=== PATIENT | male | born 2005 | race Caucasian/White ===

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

== ENCOUNTER 2023-03-26 11:08 | Emergency (ER) | payer OTHER ==
[~2023-03-26] VITALS: Ht 177.8 cm; Wt 82.3 kg
[~2023-03-26 11:08] MED LIST: CEPH500C PO
[2023-03-26] MEDS ORDERED: ACET-683 PO (11:18)
[2023-03-26] MEDS ORDERED: IBUPROFEN 600MG TAB PO ONE (13:35)
[2023-03-26 15:17] LABS: MONO SCRN POSITIVE (NEGATIVE)
[2023-03-26 15:59] VITALS: BP 130/59
== END 2023-03-26 16:04 | disposition home or self-care (01) ==
LOC: M ED 11:08
DX: B27.90 Infectious mononucleosis, unspecified without complication (principal); Z91.018 Allergy to other foods; Z79.1 Long term (current) use of non-steroidal anti-inflammatories (NSAID)

== ENCOUNTER 2024-05-09 09:38 | Emergency (ER) | payer OTHER ==
[~2024-05-09] VITALS: Ht 177.8 cm; Wt 94.3 kg
[~2024-05-09 09:38] MED LIST changes: +ACET-683 PO
[2024-05-09 09:40] VITALS: BP 130/60; TEMP 97.4; O2SAT 98
[2024-05-09] MEDS ORDERED: DOXY100T (09:54)
== END 2024-05-09 12:14 | disposition home or self-care (01) ==
LOC: M ED 09:38
DX: S06.0X0A Concussion without loss of consciousness, initial encounter (principal); S00.03XA Contusion of scalp, initial encounter; W50.1XXA Accidental kick by another person, initial encounter; M50.30 Other cervical disc degeneration, unspecified cervical region; Z91.018 Allergy to other foods; Z79.2 Long term (current) use of antibiotics; Y92.9 Unspecified place or not applicable; Y93.63 Activity, rugby; Y99.9 Unspecified external cause status